=== PATIENT | male | born 1975 | race Caucasian/White ===

== ENCOUNTER → 2016-07-06 | Outpatient (CLI) | payer OTHER ==
--- NOTE | 2016-07-06 16:15 | CR ---
EXAMINATION: Two-view chest (PA and Lateral views). HISTORY: Wheezing. FINDINGS: The trachea is midline. The cardiomediastinal silhouette is within normal limits. No pulmonary infil trates, effusions or pneumothorax. Osseous structures appear unremarkable. IMPRESSION: No acute cardiopulmonary process.
== END ==
LOC: MW.CHFP 15:26
PROVIDERS: ATTEND Physician Assistant
DX: R06.2 Wheezing (principal)
CPT/HCPCS: 36415; 71020; 71020-26; 85025

== ENCOUNTER 2017-02-03 22:50 | Emergency (ER) | payer OTHER ==
[2017-02-03 23:00] VITALS: BP 161/105
[2017-02-03] MEDS ORDERED: Sodium Chloride 0.9% 1,000 ML IV ONE (23:07)
[2017-02-03] MEDS ORDERED: Ondansetron 4 MG/2 ML SDV IVPUSH ONE (23:07)
[2017-02-03] MEDS ORDERED: Ketorolac 30 MG/ML SDV IVPUSH ONE (23:08)
--- NOTE | 2017-02-03 23:09 | EDM.PDOC ---
ED HPI GENERAL MEDICAL PROBLEM - General Chief Complaint: Flank Pain Stated Complaint: BACK PAIN Time Seen by Provider: 02/03/17 23:07 - History of Present Illness INITIAL COMMENTS - FREE TEXT/NARRATIVE: HISTORY AND PHYSICAL: History of present illness: Patient 41-year-old male presents concern of acute left flank pain came on prior to arrival is been no associated vomiting diarrhea no trauma no numbness weakness Incon is retention of bowel or bladder he denies any prior back problems he denies history urolithiasis Review of systems: As per history of present illness and below otherwise all systems reviewed and negative. Past medical history: As per history of present illness and as reviewed below otherwise noncontributory. Surgical history: As per history of present illness and as reviewed below otherwise noncontributory. Social history: No reported history of drug or alcohol abuse. Family history: As per history of present illness and as reviewed below otherwise noncontributory. Physical exam: HEENT: Atraumatic, normocephalic, pupils reactive, negative for conjunctival pallor or scleral icterus, mucous membranes moist, throat clear, neck supple, nontender, trachea midline. Lungs: Clear to auscultation, breath sounds equal bilaterally, chest nontender. Heart: S1S2, regular, negative for clicks, rubs, or JVD. Abdomen: Soft, nondistended, nontender. Negative for masses or hepatosplenomegaly. Left-sided costovertebral tenderness. Pelvis: Stable nontender. Genitourinary: Deferred. Rectal: Deferred. Extremities: Atraumatic, negative for cords or calf pain. Neurovascular unremarkable. Neuro: Awake, alert, oriented. Cranial nerves II through XII unremarkable. Cerebellum unremarkable. Motor and sensory unremarkable throughout. Exam nonfocal. Diagnostics: CBC CMP UA urine culture CT abdomen and pelvis Therapeutics: Normal saline 1 L bolus Toradol 30 iv Zofran 4 mg IV Impression: #1 acute left flank pain Definitive disposition and diagnosis as appropriate pending reevaluation and review of above. Left Flank Pain Pain Score (Numeric/FACES): 8 - Related Data Allergies Allergy/AdvReac Type Severity Reaction Status Date / Time No Known Allergies Allergy Verified 02/03/17 22:56 Home Meds: Home Meds amLODIPine Besylate [Amlodipine Besylate] 1 tab PO DAILY 11/19/13 [History] Metoprolol Succinate [Toprol XL] 50 mg PO DAILY 11/20/13 [History] Losartan [Cozaar] 25 mg PO QPM 02/03/17 [History] Past Medical History Cardiovascular History: Reports: Hypertension - Infectious Disease History Infectious Disease History: Reports: Chicken Pox - Past Surgical History Cardiovascular Surgical History: Reports: None GI Surgical History: Reports: Cholecystectomy Other Musculoskeletal Surgeries/Procedures:: foot surgery Social & Family History - Family History Family Medical History: Noncontributory - Tobacco Use Smoking Status *Q: Never Smoker Second Hand Smoke Exposure: Yes - Caffeine Use Caffeine Use: Reports: Soda - Alcohol Use Days Per Week of Alcohol Use: 0 Number of Drinks Per Day: 0 Total Drinks Per Week: 0 - Recreational Drug Use Recreational Drug Use: No Drug Use in Last 12 Months: No ED ROS GENERAL - Review of Systems Review Of Systems: ROS reveals no pertinent complaints other than HPI. ED EXAM, GENERAL - Physical Exam Exam: See Below (See dictation) Course - Vital Signs Last Recorded V/S: Last Vital Signs Temp 37.4 C 02/03/17 22:57 Pulse 92 02/03/17 22:57 Resp 16 02/03/17 22:57 BP 161/105 H 02/03/17 22:57 Pulse Ox 95 02/03/17 22:57 - Orders/Labs/Meds Orders: Active Orders 24 hr Category Date Time Status Abdomen Pelvis wo Cont [CT] Stat Exams 02/03/17 23:08 Taken CULTURE URINE [RM] Stat Lab 02/03/17 23:09 Received Labs: Laboratory Tests 02/03/17 02/03/17 02/03/17 Range/Units 23:09 23:09 23:09 WBC 8.26 (4.0-11.0) K/uL RBC 5.24 (4.50-5.90) M/uL Hgb 16.5 (13.0-17.0) g/dL Hct 47.0 (38.0-50.0) % MCV 89.7 (80.0-98.0) fL MCH 31.5 (27.0-32.0) pg MCHC 35.1 (31.0-37.0) g/dL RDW Std Deviation 43.6 (28.0-62.0) fl RDW Coeff of Daina 13 (11.0-15.0) % Plt Count 208 (150-400) K/uL MPV 11.00 (7.40-12.00) fL Neut % (Auto) 65.8 (48.0-80.0) % Lymph % (Auto) 26.6 (16.0-40.0) % Harrison % (Auto) 6.4 (0.0-15.0) % Eos % (Auto) 1.1 (0.0-7.0) % Baso % (Auto) 0.1 (0.0-1.5) % Neut # (Auto) 5.4 (1.4-5.7) K/uL Lymph # (Auto) 2.2 (0.6-2.4) K/uL Harrison # (Auto) 0.5 (0.0-0.8) K/uL Eos # (Auto) 0.1 (0.0-0.7) K/uL Baso # (Auto) 0.0 (0.0-0.1) K/uL Nucleated RBC % 0.0 /100WBC Nucleated RBCs # 0 K/uL Sodium 139 (136-146) mmol/L Potassium 4.0 (3.5-5.1) mmol/L Chloride 106 (98-110) mmol/L Carbon Dioxide 25 (21-31) mmol/L BUN 17 (6.0-23.0) mg/dL Creatinine 1.2 (0.6-1.5) mg/dL Est Cr Clr Drug Dosing 74.21 mL/min Estimated GFR (MDRD) > 60.0 ml/min Glucose 118 H (60-110) mg/dL Calcium 9.5 (8.8-10.8) mg/dL Total Bilirubin 0.6 (0.1-1.5) mg/dL AST 27 (5-40) IU/L ALT 44 (8-54) IU/L Alkaline Phosphatase 95 (40-150) Total Protein 7.6 (6.0-8.0) g/dL Albumin 4.5 (3.5-5.0) g/dL Globulin 3.1 (2.0-3.5) g/dL Albumin/Globulin Ratio 1.5 (1.3-2.8) Urine Color YELLOW Urine Appearance CLEAR Urine pH 6.0 (5.0-8.0) Ur Specific [place] 1.010 (1.001-1.035) Urine Protein NEGATIVE (NEGATIVE) mg/dL Urine Glucose (UA) NEGATIVE (NEGATIVE) mg/dL Urine Ketones NEGATIVE (NEGATIVE) mg/dL Urine Occult Blood NEGATIVE (NEGATIVE) Urine Nitrite NEGATIVE (NEGATIVE) Urine Bilirubin NEGATIVE (NEGATIVE) Urine Urobilinogen 0.2 (<2.0) EU/dL Ur Leukocyte Esterase NEGATIVE (NEGATIVE) Urine RBC 0-1 (0-2/HPF) Urine WBC 0-1 (0-5/HPF) Ur Epithelial Cells RARE (NONE-FEW) Urine Bacteria RARE (NEGATIVE) Meds: Medications Discontinued Medications Generic Name Dose Route Start Last Admin Trade Name Freq PRN Reason Stop Dose Admin Sodium Chloride 1,000 mls @ 999 mls/hr 02/03/17 23:07 02/03/17 23:16 Normal Saline IV 02/04/17 00:07 999 mls/hr .Bolus ONE Administration Ketorolac Tromethamine 30 mg 02/03/17 23:08 02/03/17 23:18 Toradol IVPUSH 02/03/17 23:09 30 mg ONETIME ONE Administration Ondansetron HCl 4 mg 02/03/17 23:07 02/03/17 23:16 Zofran IVPUSH 02/03/17 23:08 4 mg ONETIME ONE Administration Departure - Departure Time of Disposition: 00:11 Disposition: Home, Self-Care 01 Condition: Good Clinical Impression: Flank pain - Discharge Information Referrals: PCP,None [Primary Care Provider] - Forms: ED Department Discharge Additional Instructions: The following information is given to patients seen in the emergency department who are being discharged to home. This information is to outline your options for follow-up care. We provide all patients seen in our emergency department with a follow-up referral. The need for follow-up, as well as the timing and circumstances, are variable depending upon the specifics of your emergency department visit. If you don't have a primary care physician on staff, we will provide you with a referral. We always advise you to contact your personal physician following an emergency department visit to inform them of the circumstance of the visit and for follow-up with them and/or the need for any referrals to a consulting specialist. The emergency department will also refer you to a specialist when appropriate. This referral assures that you have the opportunity for followup care with a specialist. All of these measure are taken in an effort to provide you with optimal care, which includes your followup. Under all circumstances we always encourage you to contact your private physician who remains a resource for coordinating your care. When calling for followup care, please make the office aware that this follow-up is from your recent emergency room visit. If for any reason you are refused follow-up, please contact the [facility] emergency department at and asked to speak to the emergency department charge nurse. Follow-up primary medical doctor 1-2 days return as needed as discussed - My Orders Last 24 Hours: My Active Orders 02/03/17 23:08 Abdomen Pelvis wo Cont [CT] Stat 02/03/17 23:09 CULTURE URINE [RM] Stat - Assessment/Plan Last 24 Hours: My Active Orders 02/03/17 23:08 Abdomen Pelvis wo Cont [CT] Stat 02/03/17 23:09 CULTURE URINE [RM] Stat
[2017-02-03 23:39] LABS: CHLORIDE,CL 106 mmol/L (98-110); SODIUM,NA 139 mmol/L (136-146)
--- NOTE | 2017-02-04 14:49 | CT ---
EXAM DATE: 02/03/17 PATIENT'S AGE: 41 Patient: ENE DUMONT Facility: [place], [place] Site . Site : 1975 Study: CT Abdomen/Pelvis [id number]/9/2017 11:56:10 PM Ordering Physician: Cinthya Young Final Report: INDICATION: Left flank pain. TECHNIQUE: CT abdomen and pelvis without contrast. COMPARISON: None. FINDINGS: Lower chest: Unremarkable. Liver: Fatty change. Spleen: Unremarkable. Pancreas: Unremarkable. Gallbladder and bile ducts: Cholecystectomy. Kidneys: There is mild stranding of the proximal left ureter and about the renal pelvis. No discrete obstructing stone demonstrated. There is a 3 mm nonobstructing stone in the lower pole of the left kidney. Punctate nonobstructing right renal stone. Adrenal glands: Unremarkable. GI tract: Unremarkable. Appendix is normal. No free air or free fluid. Small fat containing umbilical hernia. Vascular structures: Unremarkable. Lymph nodes: Unremarkable. Pelvic Organs: Unremarkable. Bones: No acute abnormality IMPRESSION: Mild stranding adjacent to the proximal left ureter and renal pelvis likely represents sequela of recently passed stone or possibly infection. No obstructing stone demonstrated. Nonobstructing renal stones. Fatty change of the liver. Dictated by Ene Bocanegra MD @ 02/04/2017 12:07:29 AM Dictated by: Ene Bocanegra MD @ 02/04/2017 00:07:50 (Electronic Signature) Report Signed by Proxy. [facility] CAMPUSVidhya
== END 2017-02-04 00:23 | disposition home or self-care (01) ==
LOC: MW.ED 22:50
DX: R10.9 Unspecified abdominal pain (principal); I10 Essential (primary) hypertension; Z90.49 Acquired absence of other specified parts of digestive tract; Z79.899 Other long term (current) drug therapy; Z77.22 Contact with and (suspected) exposure to environmental tobacco smoke (acute) (chronic)
CPT/HCPCS: 74176; 80053; 81001; 85025; 87086; 96361; 96374; 96375; 99284; J1885; J2405; J7040; 99283

== ENCOUNTER 2017-03-01 10:18 | Emergency (ER) | payer OTHER ==
[2017-03-01 10:35] VITALS: BP 146/89
--- NOTE | 2017-03-01 11:05 | EDM.PDOC ---
ED HPI GENERAL MEDICAL PROBLEM - General Chief Complaint: Genitourinary Problem Stated Complaint: LOWER BACK PAIN Time Seen by Provider: 03/01/17 10:37 Source of Information: Reports: Patient History Limitations: Reports: No Limitations - History of Present Illness INITIAL COMMENTS - FREE TEXT/NARRATIVE: Presents reporting a sudden onset of stabbing left flank pain while he was driving. The patient states that the pain took his breath away and he had to cloth covered helmet puller. It was not associated with nausea or any other symptoms. He saw a provider in the clinic yesterday for some dysuria. A UA was negative except for small occult blood. BUN 13, creatinine 1.1. He states that 1 to 2 months ago he was diagnosed with renal stones, nonobstructing, by CT scan. A review of the records indicates that on 02/04/[address] scan of the abdomen pelvis indicated "mild stranding adjacent to the proximal left ureter and renal pelvis likely representing sequelae of a recently passed stone or possibly infection. No obstruction". The patient states that the current pain has resolved since admission to the ER. Bilateral Lower Back Pain Score (Numeric/FACES): 5 - Related Data Allergies Allergy/AdvReac Type Severity Reaction Status Date / Time No Known Allergies Allergy Verified 03/01/17 10:31 Home Meds: Home Meds amLODIPine Besylate [Amlodipine Besylate] 1 tab PO DAILY 11/19/13 [History] Metoprolol Succinate [Toprol XL] 50 mg PO DAILY 11/20/13 [History] Losartan [Cozaar] 25 mg PO QPM 02/03/17 [History] Past Medical History HEENT History: Reports: None Cardiovascular History: Reports: Hypertension Respiratory History: Reports: None Gastrointestinal History: Reports: None Genitourinary History: Reports: None Musculoskeletal History: Reports: None Neurological History: Reports: None Psychiatric History: Reports: None Endocrine/Metabolic History: Reports: None Hematologic History: Reports: None Immunologic History: Reports: None Oncologic (Cancer) History: Reports: None Dermatologic History: Reports: None - Infectious Disease History Infectious Disease History: Reports: Chicken Pox - Past Surgical History Head Surgeries/Procedures: Reports: None HEENT Surgical History: Reports: None Cardiovascular Surgical History: Reports: None Respiratory Surgical History: Reports: None GI Surgical History: Reports: Cholecystectomy Male Surgical History: Reports: None Endocrine Surgical History: Reports: None Neurological Surgical History: Reports: None Musculoskeletal Surgical History: Reports: Other (See Below) Other Musculoskeletal Surgeries/Procedures:: foot surgery Oncologic Surgical History: Reports: None Dermatological Surgical History: Reports: None Social & Family History - Family History Family Medical History: Noncontributory - Tobacco Use Smoking Status *Q: Never Smoker Second Hand Smoke Exposure: Yes - Caffeine Use Caffeine Use: Reports: Soda - Alcohol Use Days Per Week of Alcohol Use: 0 Number of Drinks Per Day: 0 Total Drinks Per Week: 0 - Recreational Drug Use Recreational Drug Use: No Drug Use in Last 12 Months: No ED ROS GENERAL - Review of Systems Review Of Systems: ROS reveals no pertinent complaints other than HPI. Constitutional: Reports: No Symptoms. Denies: Fever ED EXAM, RENAL/ - Physical Exam Exam: See Below Exam Limited By: No Limitations General Appearance: Alert, No Apparent Distress Ears: Normal External Exam Nose: Normal Inspection Throat/Mouth: Normal Inspection Head: Atraumatic, Normocephalic Neck: Normal Inspection Respiratory/Chest: No Respiratory Distress, Lungs Clear, Normal Breath Sounds Cardiovascular: Normal Peripheral Pulses GI/Abdominal: Soft Back Exam: Normal Inspection, Full Range of Motion. No: Paraspinal Tenderness, Vertebral Tenderness Extremities: Normal Inspection Neurological: Alert, Oriented, Normal Cognition Psychiatric: Normal Affect, Normal Mood Skin Exam: Warm, Dry, Intact, Normal Color, No Rash Lymphatic: No Adenopathy Course - Vital Signs Last Recorded V/S: Last Vital Signs Temp 36.3 C 03/01/17 10:32 Pulse 83 03/01/17 10:32 Resp 18 03/01/17 10:32 BP 146/89 H 03/01/17 10:32 Pulse Ox 97 03/01/17 10:32 - Orders/Labs/Meds Orders: Active Orders 24 hr Category Date Time Status UA W/MICROSCOPIC [URIN] Stat Lab 03/01/17 10:46 Received Departure - Departure Time of Disposition: 11:22 Disposition: Home, Self-Care 01 Condition: Good Clinical Impression: Renal colic on left side - Discharge Information Referrals: Albert Odonnell MD [Primary Care Provider] - Forms: ED Department Discharge Additional Instructions: 1. Drink plenty of fluids 2. Return promptly for pain or fever, burning with urination. - My Orders Last 24 Hours: My Active Orders 03/01/17 10:46 UA W/MICROSCOPIC [URIN] Stat - Assessment/Plan Last 24 Hours: My Active Orders 03/01/17 10:46 UA W/MICROSCOPIC [URIN] Stat
== END 2017-03-01 11:34 | disposition home or self-care (01) ==
LOC: MW.ED 10:18
DX: N23 Unspecified renal colic (principal); I10 Essential (primary) hypertension; Z79.899 Other long term (current) drug therapy
CPT/HCPCS: 81001; 99283

== ENCOUNTER 2017-06-28 18:30 | Emergency (ER) | payer OTHER ==
[2017-06-28] MEDS ORDERED: Proparacaine 0.5% Ophth Soln 15 ML Bottle EYELF ONE (19:08)
--- NOTE | 2017-06-28 19:13 | EDM.PDOC ---
ED HPI GENERAL MEDICAL PROBLEM - General Chief Complaint: Neuro Symptoms/Deficits Stated Complaint: PT LT SIDE OF FACE NUMB Time Seen by Provider: 06/28/17 18:59 - History of Present Illness INITIAL COMMENTS - FREE TEXT/NARRATIVE: HISTORY AND PHYSICAL: History of present illness: The patient is a 42-year-old male with a history of hypertension who follows in our clinic and states that he has been treating a bilateral eye infection with eyedrops for the last 1 week. The patient says he has had some discomfort in his left eye for the last one week but no discrete headache nausea vomiting or other systemic complaints. He says that today he noticed that he was having numbness to the left side of his face and he felt like he was having difficulty drinking liquids and his family noticed a slight droop of his face on the left as well as inability to close his eyelid completely. The symptoms of the loss of sensation and the weakness only started in the last 24 hours but the visual blurriness and discomfort has been going on for one week. He also said he had a slight pain kind his ear but no earache per se. He has no current head neck or back pains no fevers no chills no sinus issues and no history of recent head trauma. The patient says that he made an appointment to follow-up with the eyelet row marker and has that scheduled already. The patient wears glasses for reading only. The patient states he is compliant with his blood pressure medications but his blood pressure is still very variable which he is aware of. The patient denies any other weakness such as upper or lower extremity weakness and gait instability or any other neurosensory changes. Patient also has not noticed any rashes on his head neck or face. Review of systems: As per history of present illness and below otherwise all systems reviewed and negative. Past medical history: As per history of present illness and as reviewed below otherwise noncontributory. Surgical history: As per history of present illness and as reviewed below otherwise noncontributory. Social history: No reported history of drug or alcohol abuse. Family history: As per history of present illness and as reviewed below otherwise noncontributory. Physical exam: General: Well-developed well-nourished man who is nontoxic and moves easily in the ED. Vital signs noted by me. HEENT: Atraumatic, normocephalic, pupils reactive, negative for conjunctival pallor or scleral icterus, mucous membranes moist, throat clear, neck supple, nontender, trachea midline. EOMs intact please see below for eye exam Lungs: Clear to auscultation, breath sounds equal bilaterally, chest nontender. Heart: S1S2, regular, negative for clicks, rubs, or JVD. Abdomen: Soft, nondistended, nontender. Negative for masses or hepatosplenomegaly. Negative for costovertebral tenderness. Pelvis: Stable nontender. Genitourinary: Deferred. Rectal: Deferred. Extremities: Atraumatic, negative for cords or calf pain. Neurovascular unremarkable. Neuro: Awake, alert, oriented. There is visible delay in the closure of the left eyelid when the patient blinks and there is weakness on stress exam when the patient closes the eyes and I open them. There is a slight facial droop if this smile and there is some weakness in the cheek muscles as well as a loss of 4 head movement with upgoing eyebrows. All of these changes are seen more with direct exam not with gross visual inspection. All other extremities have strength 5/5 including dorsi and plantar flexion in gait was intact into the ED. Cerebellum unremarkable. Motor and sensory unremarkable throughout except for decreased sense of sensation in the left facial areas. Exam nonfocal except for facial as above. Skin: There is no evidence of any rashes or lesions seen on the facial area as well as the scalp head or neck. Diagnostics: Visual acuity fluoroscein stain CT scan of the head Therapeutics: propericaine for exam Visual acuity per nursing: Both eyes 20/20 right eye 20/20 left eye 20/60 Procedure note: After proparacaine was infused in the left eye fluoroscein stain was performed. There is no evidence of any uptake or corneal abrasion seen and patient tolerated the procedure well. The fluoroscein was irrigated out with normal saline 1954: Case was discussed with our fur dressing supervisor Dr. Sal due to the visual acuity. He would like to see this patient on afternoon in his clinic and feels that his visual changes are likely attributed to the dryness of the eyes. He recommends constant lubrication of the eye and taping of the eye at sleep times. All testing results and this conversation were discussed with the patient and at bedside. They're aware of the need to call for an appointment on and reasons to return to the ED. Nursing will teach him how to tape his eye shut for sleep times Impression: Ruiz's palsy left Definitive disposition and diagnosis as appropriate pending reevaluation and review of above. Left Eye Pain Score (Numeric/FACES): 7 - Related Data Allergies Allergy/AdvReac Type Severity Reaction Status Date / Time No Known Allergies Allergy Verified 06/28/17 18:43 Home Meds: Home Meds amLODIPine Besylate [Amlodipine Besylate] 10 mg PO DAILY 11/19/13 [History] Metoprolol Succinate [Toprol XL] 50 mg PO DAILY 11/20/13 [History] Losartan [Cozaar] 25 mg PO QPM 02/03/17 [History] Past Medical History HEENT History: Reports: None Cardiovascular History: Reports: Hypertension Respiratory History: Reports: None Gastrointestinal History: Reports: None Genitourinary History: Reports: None Musculoskeletal History: Reports: None Neurological History: Reports: None Psychiatric History: Reports: None Endocrine/Metabolic History: Reports: None Hematologic History: Reports: None Immunologic History: Reports: None Oncologic (Cancer) History: Reports: None Dermatologic History: Reports: None - Infectious Disease History Infectious Disease History: Reports: Chicken Pox - Past Surgical History Head Surgeries/Procedures: Reports: None HEENT Surgical History: Reports: None Cardiovascular Surgical History: Reports: None Respiratory Surgical History: Reports: None GI Surgical History: Reports: Cholecystectomy Male Surgical History: Reports: None Endocrine Surgical History: Reports: None Neurological Surgical History: Reports: None Musculoskeletal Surgical History: Reports: Other (See Below) Other Musculoskeletal Surgeries/Procedures:: foot surgery Oncologic Surgical History: Reports: None Dermatological Surgical History: Reports: None Social & Family History - Family History Family Medical History: Noncontributory - Tobacco Use Smoking Status *Q: Never Smoker Second Hand Smoke Exposure: Yes - Caffeine Use Caffeine Use: Reports: Soda - Alcohol Use Days Per Week of Alcohol Use: 0 Number of Drinks Per Day: 0 Total Drinks Per Week: 0 - Recreational Drug Use Recreational Drug Use: No Drug Use in Last 12 Months: No ED ROS GENERAL - Review of Systems Review Of Systems: ROS reveals no pertinent complaints other than HPI. ED EXAM, GENERAL - Physical Exam Exam: See Below (See dictation) Course - Vital Signs Last Recorded V/S: Last Vital Signs Temp 36.1 C 06/28/17 18:38 Pulse 73 06/28/17 18:38 Resp 18 06/28/17 18:38 BP 142/100 H 06/28/17 18:38 Pulse Ox 95 06/28/17 18:38 - Orders/Labs/Meds Orders: Active Orders 24 hr Category Date Time Status Communication Order [RC] STAT Care 06/28/17 19:08 Active Communication Order [RC] STAT Care 06/28/17 20:11 Ordered Head wo Cont [CT] Stat Exams 06/28/17 19:08 Taken Meds: Medications Discontinued Medications Generic Name Dose Route Start Last Admin Trade Name Freq PRN Reason Stop Dose Admin Proparacaine HCl 1 ml 06/28/17 19:08 Proparacaine 0.5% Ophth Soln EYELF 06/28/17 19:09 ONETIME ONE Departure - Departure Time of Disposition: 20:12 Disposition: Home, Self-Care 01 Condition: Good Clinical Impression: Ruiz's palsy - Discharge Information Referrals: PCP,None [Primary Care Provider] - Forms: ED Department Discharge Additional Instructions: The following information is given to patients seen in the emergency department who are being discharged to home. This information is to outline your options for follow-up care. We provide all patients seen in our emergency department with a follow-up referral. The need for follow-up, as well as the timing and circumstances, are variable depending upon the specifics of your emergency department visit. If you don't have a primary care physician on staff, we will provide you with a referral. We always advise you to contact your personal physician following an emergency department visit to inform them of the circumstance of the visit and for follow-up with them and/or the need for any referrals to a consulting specialist. The emergency department will also refer you to a specialist when appropriate. This referral assures that you have the opportunity for followup care with a specialist. All of these measure are taken in an effort to provide you with optimal care, which includes your followup. Under all circumstances we always encourage you to contact your private physician who remains a resource for coordinating your care. When calling for followup care, please make the office aware that this follow-up is from your recent emergency room visit. If for any reason you are refused follow-up, please contact the [facility] emergency department at and ask to speak to the emergency department charge nurse. [facility] Primary care- Internal Medicine and Family [facility] [address] [place], [place] [address] [facility] _ Optho [address] [place] [address] Please call [facility] tomorrow to schedule an appointment to see Dr. Sal on afternoon. Please physically tell them that the physician wants to see him on this particular day. Please take ice shot at sleep and neck times. Use [id number] eye lubrication constantly through the day to keep the eye moist. Take all medications as prescribed and return to ER as needed and as discussed. Please call and schedule a follow-up appointment with your provider after you see the fur dressing supervisor for reevaluation and further care - My Orders Last 24 Hours: My Active Orders 06/28/17 19:08 Communication Order [RC] STAT Head wo Cont [CT] Stat 06/28/17 20:11 Communication Order [RC] STAT - Assessment/Plan Last 24 Hours: My Active Orders 06/28/17 19:08 Communication Order [RC] STAT Head wo Cont [CT] Stat 06/28/17 20:11 Communication Order [RC] STAT
[2017-06-29 04:29] VITALS: BP 142/106
--- NOTE | 2017-06-29 10:18 | CT ---
EXAM DATE: 06/28/17 PATIENT'S AGE: 42 Patient: ENE DUMONT Facility: [place], [place] Site . Site : 1975 Study: CT Head WO CONT [id number]/3/2018 7:31:47 PM Ordering Physician: Pat Pulido Final Report: CT HEAD DATE: 06/28/2017 CLINICAL HISTORY: Patient with left-sided facial numbness, blurred vision and inability to close the left eye. TECHNIQUE: Standard CT scanning of the head was performed. COMPARISON: None. FINDINGS: There is no intracranial hemorrhage. The rivera matter-white matter differentiation is intact. The size of the ventricular system is normal for age. There is no mass effect or midline shift. The calvarium is unremarkable. The orbits are unremarkable. The paranasal sinuses are unremarkable. The mastoid air cells are unremarkable. The soft tissues are unremarkable. IMPRESSION: Normal head CT. Dictated by: Gerard Grey MD @ 06/28/2017 19:50:22 (Electronic Signature) Report Signed by Proxy. [facility]
== END 2017-06-28 20:30 | disposition home or self-care (01) ==
LOC: MW.ED 18:30
DX: G51.0 Bell's palsy (principal); I10 Essential (primary) hypertension; Z79.899 Other long term (current) drug therapy
CPT/HCPCS: 70450; 70450-26; 99284; 99284-25

== ENCOUNTER 2018-05-12 09:58 | Day surgery (SDC) | payer OTHER ==
[2018-05-12] MEDS ORDERED: Lactated Ringers 1,000 ML IV SCH ×2 (10:00→14:00)
--- NOTE | 2018-05-12 11:42 | PCM.PREANE ---
Preanesthetic Assessment - Anesthesia/Transfusion/Family Hx Anesthesia History: Prior Anesthesia Without Reaction Other Type of Anesthesia Reaction Comment: Denies any known problems, no known family hx: problems Family History of Anesthesia Reaction: No Transfusion History: No Prior Transfusion(s) - Review of Systems General: No Symptoms Pulmonary: No Symptoms Cardiovascular: No Symptoms Gastrointestinal: No Symptoms Neurological: No Symptoms Other: Reports: None - Physical Assessment NPO Status Date: 05/11/18 Height: 5 ft 8 in Weight: 111.13 kg ASA Class: 2 Mental Status: Alert & Oriented x3 Airway Class: Mallampati = 1 Dentition: Reports: Normal Dentition ROM/Head Extension: Full Lungs: Clear to Auscultation, Normal Respiratory Effort Cardiovascular: Regular Rate, Regular Rhythm - Allergies Allergies/Adverse Reactions: Allergies Allergy/AdvReac Type Severity Reaction Status Date / Time No Known Allergies Allergy Verified 05/09/18 13:58 - Blood Blood Available: No - Anesthesia Plan Pre-Op Medication Ordered: None - Acknowledgements Anesthesia Type Planned: MAC Pt an Appropriate Candidate for the Planned Anesthesia: Yes Alternatives and Risks of Anesthesia Discussed w Pt/Guardian: Yes Pt/Guardian Understands and Agrees with Anesthesia Plan: Yes Additional Comments: PMH: htn PLAN: mac/tiva PreAnesthesia Questionnaire HEENT History: Reports: Allergic Rhinitis Cardiovascular History: Reports: Hypertension Respiratory History: Reports: None Gastrointestinal History: Reports: GERD, Hemorrhoids Genitourinary History: Reports: Renal Calculus Musculoskeletal History: Reports: Back Pain, Chronic Neurological History: Reports: Seizure, Other (See Below) Other Neuro History: hx of Floris Palsy, hx of seixure as a child- unknown cause Psychiatric History: Reports: Anxiety Endocrine/Metabolic History: Reports: Obesity/BMI 30+ Hematologic History: Reports: None Immunologic History: Reports: None Oncologic (Cancer) History: Reports: None Dermatologic History: Reports: None - Infectious Disease History Infectious Disease History: Reports: Chicken Pox - Past Surgical History HEENT Surgical History: Reports: None GI Surgical History: Reports: Cholecystectomy, Colonoscopy, EGD Musculoskeletal Surgical History: Reports: Other (See Below) Other Musculoskeletal Surgeries/Procedures:: tendon repair right foot - SUBSTANCE USE Smoking Status *Q: Never Smoker Recreational Drug Use History: No - HOME MEDS Home Medications: Home Meds amLODIPine Besylate [Amlodipine Besylate] 10 mg PO QAM 11/19/13 [History] Metoprolol Succinate [Toprol XL] 50 mg PO QAM 11/20/13 [History] Losartan [Cozaar] 25 mg PO QPM 02/03/17 [History] Cholecalciferol (Vitamin D3) [Vitamin D3] 1,000 units PO DAILY 05/09/18 [History ] Gluc HCl/Csa/Erin Hy/Hyalur Ac [Glucosamine Chondroitin] 1 tab PO DAILY [History] Magnesium Citrate 100 mg PO DAILY 05/09/18 [History] Vitamin B Complex 1 tab PO DAILY 05/09/18 [History] - CURRENT (IN HOUSE) MEDS Current Meds: Current Medications Lactated Ringer's (Ringers, Lactated) 1,000 mls @ 125 mls/hr IV ASDIRECTED AURELIO
[2018-05-12] MEDS ORDERED: Propofol 200 MG/20 ML SDV ONE (12:45)
[2018-05-12] MEDS ORDERED: fentaNYL 100 MCG/2 ML SDV ONE (12:45)
[2018-05-12] MEDS ORDERED: Midazolam 1 MG/ML 2 ML SDV ONE (12:48)
--- NOTE | 2018-05-12 13:52 | PCM.OPNOTE ---
- General Post-Op/Procedure Note Date of Surgery/Procedure: 05/12/18 Operative Procedure(s): Esophagogastroduodenoscopy with gastric biopsies. Colonoscopy with cold proximal and distal rectal polypectomies. Pre Op Diagnosis: Progressive heartburn. Change in bowel habits. Family history of colon cancer. Post-Op Diagnosis: Moderate gastritis with vital hernia and esophagitis. Rectal polyps. Anesthesia Technique: MAC (ASA II) Primary Surgeon: Bonilla Price Condition: Good Free Text/Narrative:: DICTATION [id number] CPT CODE [id number]
--- NOTE | 2018-05-12 13:56 | PCM.POSTAN ---
POST ANESTHESIA ASSESSMENT - MENTAL STATUS Mental Status: Alert, Oriented - RESPIRATORY Respiratory Status: Respiratory Rate WNL, Airway Patent, O2 Saturation Stable - CARDIOVASCULAR CV Status: Pulse Rate WNL, Blood Pressure Stable - GASTROINTESTINAL GI Status: No Symptoms - POST OP HYDRATION Hydration Status: Adequate & Stable - OBSERVATIONS Free Text/Narrative:: The patient tolerated the procedure well. there were no apparent anesthetic complications at this time. Discharge home per criteria.
--- NOTE | 2018-05-12 14:07 | OR ---
SURGEON: Bonilla Price M.D. DATE OF PROCEDURE: 05/12/2018 OPERATION PERFORMED: Colonoscopy with cold proximal and distal rectal polypectomies. ANESTHESIA: MAC. ASA CLASSIFICATION: II. PREOPERATIVE DIAGNOSES: 1. Change in bowel habits. 2. Family history of colon cancer. POSTOPERATIVE DIAGNOSIS: Rectal polyps. DESCRIPTION OF PROCEDURE: With the patient having completed esophagogastroduodenoscopy with biopsy, he was maintained in the left lateral decubitus position. The colonoscope was inserted into the rectum and advanced without difficulty to the cecum where the colonoscope was retroflexed to visualize the ascending colon from below. The colonoscope was then straightened and slowly withdrawn. The cecum, ascending colon, hepatic flexure, transverse colon, splenic flexure, descending colon, and sigmoid colon showed no tumors, polyps, diverticula, or angiodysplastic changes. There were a few small polyps encountered in the rectum. One was proximal and sent as a separate specimen. There were two smaller polyps distally that were sent as one specimen, given their close proximity. The colonoscope was then retroflexed to visualize the anal orifice from above. No tumors or polyps were seen, and there were no other acute hemorrhoidal changes. The colonoscope was then straightened, the rectum aspirated, and the colonoscope removed. The patient tolerated the procedure well and was taken to recovery room in stable condition. HAJA ORTIZ /[id number]
--- NOTE | 2018-05-12 14:09 | OR ---
SURGEON: Bonilla Price M.D. DATE OF PROCEDURE: 05/12/2018 OPERATION PERFORMED: Esophagogastroduodenoscopy with biopsy. ANESTHESIA: MAC. ASA CLASSIFICATION: II. PREOPERATIVE DIAGNOSIS: Progressive heartburn. POSTOPERATIVE DIAGNOSES: 1. Gastritis. 2. Esophagitis with superficial esophageal erosions. DESCRIPTION OF PROCEDURE: The patient was taken to the endoscopy room and positioned on the endoscopy table in the left lateral decubitus position. Time-out was called for appropriate identification of the patient and procedure. A bite block was placed between the patient's teeth. The gastroscope was inserted through the bite block into the oropharynx and advanced without difficulty through the esophagus and stomach into the duodenum where examination was carried out in a retrograde fashion. The duodenum shows no acute inflammatory changes or ulcerations. Stomach does show [id number] gastritis. No acute erosions or ulcers were identified. The gastroscope was retroflexed to visualize the proximal stomach. The patient does have a small hiatal hernia which was better viewed from above. As the scope was withdrawn, the greater and lesser curvatures were carefully visualized. No tumors or polyps were seen. The GE junction was well defined and again shows a small hiatal hernia. He did have some superficial esophageal erosions, but no deep ulceration. No tumors were noted. The esophagus itself demonstrates good contractility. No mid or proximal lesions were identified. The vocal cords were briefly visualized as the scope was withdrawn and noted to move symmetrically. The gastroscope was then removed with the patient having tolerated this portion of the procedure well. Following colonoscopy, he was taken to recovery room in stable condition. HAJA / DIANA /[id number]
--- NOTE | 2018-05-12 14:45 | PCM48HPAN ---
Post Anesthesia Note - EVALUATION WITHIN 48HRS OF ANESTHETIC Vital Signs in Normal Range: Yes Patient Participated in Evaluation: Yes Respiratory Function Stable: Yes Airway Patent: Yes Cardiovascular Function Stable: Yes Hydration Status Stable: Yes Pain Control Satisfactory: Yes Nausea and Vomiting Control Satisfactory: Yes Mental Status Recovered: Yes Resp Rate: 12
[2018-05-12 17:41] VITALS: BP 126/88
== END 2018-05-12 15:00 | disposition home or self-care (01) ==
LOC: MW.SDS 09:58
PROVIDERS: ATTEND Surgery
DX: K62.1 Rectal polyp (principal); K29.50 Unspecified chronic gastritis without bleeding; K22.10 Ulcer of esophagus without bleeding; K44.9 Diaphragmatic hernia without obstruction or gangrene; I10 Essential (primary) hypertension; E78.5 Hyperlipidemia, unspecified; N20.0 Calculus of kidney; E66.9 Obesity, unspecified; Z68.37 Body mass index [BMI] 37.0-37.9, adult; Z80.0 Family history of malignant neoplasm of digestive organs; Z79.899 Other long term (current) drug therapy
CPT/HCPCS: 43239; 45380; J2250; J2704; J3010; J7120; J2001

== ENCOUNTER 2020-04-08 15:06 | Emergency (ER) | payer BC, OTHER ==
[2020-04-08 15:23] VITALS: BP 151/89
[2020-04-08] MEDS: Tetracaine HCl/PF 0.5% 4 ML Bottle OP ONE (15:27)
--- NOTE | 2020-04-08 15:54 | EDM.PDOC ---
ED HPI GENERAL MEDICAL PROBLEM - General Chief Complaint: Eye Problems Stated Complaint: LT EYE PROBLEM Time Seen by Provider: 04/08/20 15:23 Source of Information: Reports: Patient History Limitations: Reports: No Limitations - History of Present Illness INITIAL COMMENTS - FREE TEXT/NARRATIVE: Is a 44-year-old male who presents today for possible foreign body to the left eye. Patient went to the primary care clinic and was sent here for evaluation. Patient states he feels like something is in his eyes very itchy. Patient has no vision changes no drainage from the eye. Patient did say he was cutting sheet metal when this happened. Patient denies any other injuries. Left Eye Pain Score (Numeric/FACES): 3 - Related Data Allergies Allergy/AdvReac Type Severity Reaction Status Date / Time No Known Allergies Allergy Verified 05/09/18 13:58 Home Meds: Home Meds amLODIPine Besylate [Amlodipine Besylate] 10 mg PO QAM 11/19/13 [History] Metoprolol Succinate [Toprol XL] 50 mg PO QAM 11/20/13 [History] Losartan [Cozaar] 25 mg PO QPM 02/03/17 [History] Erythromycin Base [Erythromycin 0.5% Ophth Oint] 1 applic OP Q6HR 5 Days #1 tube 04/08/20 [Rx] Past Medical History HEENT History: Reports: Allergic Rhinitis Cardiovascular History: Reports: Hypertension Respiratory History: Reports: None Gastrointestinal History: Reports: GERD, Hemorrhoids Genitourinary History: Reports: Renal Calculus Musculoskeletal History: Reports: Back Pain, Chronic Neurological History: Reports: Seizure, Other (See Below) Other Neuro History: hx of [place] Palsy, hx of seixure as a child- unknown cause Psychiatric History: Reports: Anxiety Endocrine/Metabolic History: Reports: Obesity/BMI 30+ Hematologic History: Reports: None Immunologic History: Reports: None Oncologic (Cancer) History: Reports: None Dermatologic History: Reports: None - Infectious Disease History Infectious Disease History: Reports: Chicken Pox - Past Surgical History Head Surgeries/Procedures: Reports: None HEENT Surgical History: Reports: None Cardiovascular Surgical History: Reports: None Respiratory Surgical History: Reports: None GI Surgical History: Reports: Cholecystectomy, Colonoscopy, EGD Male Surgical History: Reports: None Endocrine Surgical History: Reports: None Neurological Surgical History: Reports: None Musculoskeletal Surgical History: Reports: Other (See Below) Other Musculoskeletal Surgeries/Procedures:: tendon repair right foot Oncologic Surgical History: Reports: None Dermatological Surgical History: Reports: None Social & Family History - Family History Family Medical History: No Pertinent Family History - Tobacco Use Tobacco Use Status *Q: Never Tobacco User - Caffeine Use Caffeine Use: Reports: Soda - Recreational Drug Use Recreational Drug Use: No ED ROS GENERAL - Review of Systems Review Of Systems: See Below Constitutional: Reports: No Symptoms HEENT: Reports: Eye Pain Respiratory: Reports: No Symptoms Cardiovascular: Reports: No Symptoms Endocrine: Reports: No Symptoms GI/Abdominal: Reports: No Symptoms : Reports: No Symptoms Musculoskeletal: Reports: No Symptoms Skin: Reports: No Symptoms Neurological: Reports: No Symptoms Psychiatric: Reports: No Symptoms Hematologic/Lymphatic: Reports: No Symptoms Immunologic: Reports: No Symptoms ED EXAM GENERAL W FULL EYE - Physical Exam Exam: See Below Exam Limited By: No Limitations General Appearance: Alert, WD/WN Eye Exam: Left Eye: Corneal Abrasion, Bilateral Eye: EOMI, PERRL Eyelids: Bilateral: Normal Appearance Conjunctiva & Sclera: Right: Normal Appearance Cornea Exam: Left: Corneal Abrasion Extraocular Movements: Bilateral: Intact Pupils: Normal Accommodation Neurological: Alert, Oriented Course - Vital Signs Last Recorded V/S: Last Vital Signs Temp 96.9 F 04/08/20 15:20 Pulse 76 04/08/20 15:20 Resp 17 04/08/20 15:20 BP 151/89 H 04/08/20 15:20 Pulse Ox 98 04/08/20 15:20 - Orders/Labs/Meds Meds: Medications Discontinued Medications Generic Name Dose Route Start Last Admin Trade Name Leah PRN Reason Stop Dose Admin Tetracaine HCl 1 ml 04/08/20 15:23 04/08/20 15:27 Tetracaine 0.5% Steri-Unit Dinora OP 04/08/20 15:24 1 ml ASDIRECTED ONE Administration Departure - Departure Time of Disposition: 15:49 Disposition: Home, Self-Care 01 Condition: Good Clinical Impression: Corneal abrasion - Discharge Information *PRESCRIPTION DRUG MONITORING PROGRAM REVIEWED*: Not Applicable *COPY OF PRESCRIPTION DRUG MONITORING REPORT IN PATIENT MILY: Not Applicable Instructions: Corneal Abrasion, Eye Foreign Body, [id number] Referrals: Albert Odonnell MD [Primary Care Provider] - Additional Instructions: The following information is given to patients seen in the emergency department who are being discharged to home. This information is to outline your options for follow-up care. We provide all patients seen in our emergency department with a follow-up referral. The need for follow-up, as well as the timing and circumstances, are variable depending upon the specifics of your emergency department visit. If you don't have a primary care physician on staff, we will provide you with a referral. We always advise you to contact your personal physician following an emergency department visit to inform them of the circumstance of the visit and for follow-up with them and/or the need for any referrals to a consulting specialist. The emergency department will also refer you to a specialist when appropriate. This referral assures that you have the opportunity for follow-up care with a specialist. All of these measure are taken in an effort to provide you with optimal care, which includes your follow-up. Under all circumstances we always encourage you to contact your private physician who remains a resource for coordinating your care. When calling for follow-up care, please make the office aware that this follow-up is from your recent emergency room visit. If for any reason you are refused follow-up, please contact the [facility] Emergency Department at and asked to speak to the emergency department charge nurse. Please follow up with your primary care physician. If you do not have a primary care physician, see below: Ophthalmology Clinic /Eye clinic [phone] Please call the number above and schedule follow-up appointment to be seen this week by the eye clinic. Sepsis Event Note (ED) - Evaluation Sepsis Screening Result: No Definite Risk - Focused Exam Vital Signs: Vital Signs Temp Pulse Resp BP Pulse Ox 04/08/20 15:20 96.9 F 76 17 151/89 H 98 - Assessment/Plan Assessment:: Is a 44-year-old male who presented today for possible foreign body. On exam there is no foreign body seen. We did a Brian lamp that show a small corneal abrasion to the medial side of the left eye on the conjunctive a. Patient does not wear contacts we will send patient home with erythromycin have patient see ophthalmology this week.
[2020-04-08 16:02] VITALS: PULSE 77
== END 2020-04-08 16:02 | disposition home or self-care (01) ==
LOC: MW.ED 15:06
DX: S05.02XA Injury of conjunctiva and corneal abrasion without foreign body, left eye, initial encounter (principal); I10 Essential (primary) hypertension; E66.9 Obesity, unspecified; Z68.41 Body mass index [BMI] 40.0-44.9, adult; Z79.899 Other long term (current) drug therapy; X58.XXXA Exposure to other specified factors, initial encounter
CPT/HCPCS: 99282; 99283

== ENCOUNTER 2020-10-01 06:49 | Day surgery (SDC) | payer BC, OTHER ==
[~2020-10-01 06:49] MED LIST: Albuterol 0.083% 2.5 MG/3 ML Neb Soln NEB PRN; HYDROmorphone 1 MG/ML Syringe IVPUSH PRN; Lactated Ringers 1,000 ML IV SCH; Lidocaine 2% 5 ML SDV ONE; Metoclopramide 10 MG/2 ML SDV IVPUSH PRN; Metoclopramide 10 MG/2 ML SDV ONE; Morphine 2 MG/ML SYRINGE IVPUSH PRN; Naloxone 0.4 MG/ML Syringe IVPUSH PRN; Ondansetron 4 MG/2 ML SDV IVPUSH PRN; Ondansetron 4 MG/2 ML SDV ONE; fentaNYL 100 MCG/2 ML SDV IVPUSH PRN; fentaNYL 100 MCG/2 ML SDV ONE; propofoL 100 ML ONE
--- NOTE | 2020-10-01 07:15 | PCM.PREANE ---
Preanesthetic Assessment - Anesthesia/Transfusion/Family Hx Anesthesia History: Prior Anesthesia Without Reaction Other Type of Anesthesia Reaction Comment: Denies any known problems, no known family hx: problems Family History of Anesthesia Reaction: No Transfusion History: No Prior Transfusion(s) - Review of Systems General: No Symptoms Pulmonary: No Symptoms Cardiovascular: No Symptoms Gastrointestinal: No Symptoms Neurological: No Symptoms Other: Reports: None - Physical Assessment NPO Status Date: 10/01/20 NPO Status Time: 00:00 Height: 1.73 m Weight: 108.862 kg ASA Class: 3 Mental Status: Alert & Oriented x3 Airway Class: Mallampati = 1 Dentition: Reports: Normal Dentition Thyro-Mental Finger Breadths: 4 Mouth Opening Finger Breadths: 3 ROM/Head Extension: Full Lungs: Clear to Auscultation, Normal Respiratory Effort Cardiovascular: Regular Rate, Regular Rhythm - Allergies Allergies/Adverse Reactions: Allergies Allergy/AdvReac Type Severity Reaction Status Date / Time No Known Allergies Allergy Verified 09/25/20 11:43 - Acknowledgements Anesthesia Type Planned: General Anesthesia Pt an Appropriate Candidate for the Planned Anesthesia: Yes Alternatives and Risks of Anesthesia Discussed w Pt/Guardian: Yes Pt/Guardian Understands and Agrees with Anesthesia Plan: Yes PreAnesthesia Questionnaire HEENT History: Reports: Allergic Rhinitis Cardiovascular History: Reports: Hypertension Respiratory History: Reports: None Gastrointestinal History: Reports: GERD, Hemorrhoids Genitourinary History: Reports: Renal Calculus Musculoskeletal History: Reports: None Neurological History: Reports: Other (See Below) Other Neuro History: hx of [place] Palsy, Psychiatric History: Reports: None Endocrine/Metabolic History: Reports: Obesity/BMI 30+ Hematologic History: Reports: None Immunologic History: Reports: None Oncologic (Cancer) History: Reports: None Dermatologic History: Reports: None - Infectious Disease History Infectious Disease History: Reports: Chicken Pox - Past Surgical History Head Surgeries/Procedures: Reports: None HEENT Surgical History: Reports: None Cardiovascular Surgical History: Reports: None Respiratory Surgical History: Reports: None GI Surgical History: Reports: Cholecystectomy, Colonoscopy, EGD Male Surgical History: Reports: None Endocrine Surgical History: Reports: None Neurological Surgical History: Reports: None Musculoskeletal Surgical History: Reports: Other (See Below) Other Musculoskeletal Surgeries/Procedures:: tendon repair right foot Oncologic Surgical History: Reports: None Dermatological Surgical History: Reports: None - SUBSTANCE USE Tobacco Use Status *Q: Never Tobacco User - HOME MEDS Home Medications: Home Meds amLODIPine Besylate [Amlodipine Besylate] 10 mg PO QAM 11/19/13 [History] Metoprolol Succinate [Toprol XL] 50 mg PO QAM 11/20/13 [History] Losartan [Cozaar] 50 mg PO QPM 02/03/17 [History] Calcium Carbonate [Tums] 1 tab.chew CHEW ASDIRECTED PRN 09/25/20 [History] Multivitamin 1 tab PO DAILY 09/25/20 [History] Vitamin B Complex 1 tab PO DAILY 09/25/20 [History] - CURRENT (IN HOUSE) MEDS Current Meds: Current Medications Albuterol (Albuterol 0.083% 2.5 Mg/3 Ml Neb Soln) 2.5 mg NEB ONETIME PRN PRN Reason: Wheezing Droperidol (Droperidol 5 Mg/2 Ml Sdv) 0.625 mg IVPUSH ONETIME PRN PRN Reason: Nausea/Vomiting Fentanyl (Fentanyl 100 Mcg/2 Ml Sdv) 50 mcg IVPUSH Q5M PRN PRN Reason: Pain (mild 1-3) Hydromorphone HCl (Hydromorphone 1 Mg/Ml Syringe) 1 mg IVPUSH Q10M PRN PRN Reason: Pain (moderate 4-6) Lactated Ringer's (Ringers, Lactated) 1,000 mls @ 100 mls/hr IV ASDIRECTED AURELIO Cefazolin Sodium/Dextrose 2 gm (/ Premix) 50 mls @ 100 mls/hr IV ONCALL AURELIO Metoclopramide HCl (Metoclopramide 10 Mg/2 Ml Sdv) 10 mg IVPUSH ONETIME PRN PRN Reason: Nausea/Vomiting Morphine Sulfate (Morphine 2 Mg/Ml Syringe) 2 mg IVPUSH Q10M PRN PRN Reason: Pain (severe 7-10) Naloxone HCl (Naloxone 0.4 Mg/Ml Syringe) 0.1 mg IVPUSH ASDIRECTED PRN PRN Reason: Respiratory Depression Ondansetron HCl (Ondansetron 4 Mg/2 Ml Sdv) 4 mg IVPUSH ONETIME PRN PRN Reason: Nausea/Vomiting Discontinued Medications Fentanyl (Fentanyl 100 Mcg/2 Ml Sdv) Confirm Administered Dose 100 mcg .ROUTE .STK-MED ONE Stop: 10/01/20 06:44 Propofol (Diprivan 100 Ml) Confirm Administered Dose 100 mls @ as directed .ROUTE .ST-MED ONE Stop: 10/01/20 06:44 Lidocaine (Lidocaine 2% 5 Ml Sdv) Confirm Administered Dose 5 ml .ROUTE .ST-MED ONE Stop: 10/01/20 06:44 Metoclopramide HCl (Metoclopramide 10 Mg/2 Ml Sdv) Confirm Administered Dose 10 mg .ROUTE .ST-MED ONE Stop: 10/01/20 06:44 Ondansetron HCl (Ondansetron 4 Mg/2 Ml Sdv) Confirm Administered Dose 4 mg .ROUTE .STDole Tian-MED ONE Stop: 10/01/20 06:44
[2020-10-01] MEDS ORDERED: Lidocaine 1% 20 ML MDV ONE (07:21)
[2020-10-01] MEDS ORDERED: Bupivacaine 25%/EPINEPHrine/PF 30 ML ONE (07:22)
[2020-10-01] MEDS ORDERED: ceFAZolin 2 GM in Premix Bag 1 BAG IV SCH (08:00)
[2020-10-01] MEDS ORDERED: Glycopyrrolate 0.2 MG/ML SDV ONE (08:02)
[2020-10-01] MEDS ORDERED: Phenylephrine 1% 10 MG/ML SDV ONE (08:39)
[2020-10-01] MEDS ORDERED: Ketorolac 30 MG/ML SDV ONE (08:41)
[2020-10-01] MEDS ORDERED: Dexamethasone 4 MG/ML 5 ML MDV ONE (08:42)
[2020-10-01] MEDS ORDERED: Ondansetron 4 MG/2 ML SDV ONE (08:47)
[2020-10-01] MEDS ORDERED: ceFAZolin 1 GM Vial ONE ×2 (08:52)
--- NOTE | 2020-10-01 09:38 | PCM48HPAN ---
Post Anesthesia Note - EVALUATION WITHIN 48HRS OF ANESTHETIC Vital Signs in Normal Range: Yes Patient Participated in Evaluation: Yes Respiratory Function Stable: Yes Airway Patent: Yes Cardiovascular Function Stable: Yes Hydration Status Stable: Yes Pain Control Satisfactory: Yes Nausea and Vomiting Control Satisfactory: Yes Mental Status Recovered: Yes Vital Signs: Last Vital Signs Temp 97.3 F 10/01/20 07:25 Pulse 66 10/01/20 07:25 Resp 16 10/01/20 07:25 BP 160/93 H 10/01/20 07:25 Pulse Ox 95 10/01/20 07:25
--- NOTE | 2020-10-01 09:38 | PCM.POSTAN ---
POST ANESTHESIA ASSESSMENT - MENTAL STATUS Mental Status: Alert, Oriented - VITAL SIGNS Vital Signs: Last Vital Signs Temp 97.3 F 10/01/20 07:25 Pulse 66 10/01/20 07:25 Resp 16 10/01/20 07:25 BP 160/93 H 10/01/20 07:25 Pulse Ox 95 10/01/20 07:25 - RESPIRATORY Respiratory Status: Respiratory Rate WNL, Airway Patent, O2 Saturation Stable - CARDIOVASCULAR CV Status: Pulse Rate WNL, Blood Pressure Stable - GASTROINTESTINAL GI Status: No Symptoms - POST OP HYDRATION Hydration Status: Adequate & Stable
--- NOTE | 2020-10-01 09:39 | PCM.OPNOTE ---
- General Post-Op/Procedure Note Date of Surgery/Procedure: 10/01/20 Operative Procedure(s): Right knee arthroscopy and partial medial meniscectomy and medial femoral condyle chondroplasty Findings: Right knee arthroscopic findings: Lateral compartment-femoral and tibial cartilage is intact and lateral meniscus has no tears Notch-anterior cruciate ligament is intact Medial compartment-femoral condyle shows diffuse grade 2 changes in the anterior aspect of the femoral condyle, tibial cartilage shows minimal grade 1 changes, complex tear of the posterior third of the medial meniscus Patellofemoral joint-patellar cartilage is intact with small focal grade 1 changes of the trochlear groove cartilage No loose bodies noted Pre Op Diagnosis: Right knee medial meniscus tear Post-Op Diagnosis: 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 MRI confirms that he has a right knee medial meniscus tear. We discussed the risks and benefits of arthroscopic surgery and the difficulty knowing how much of his medial knee pain may be caused by the meniscus tear or arthritis. He had minimal degenerative changes on x-ray. He elected to proceed with surgery and consented. He was medically cleared for surgery. Patient was taken to the operating room. After adequate general anesthesia he remained in a supine position. The right lower extremities prepped draped in usual sterile manner after application of a tourniquet. The tourniquet was inflated. Arthroscopy was performed with a superior medial drain portal, medial parapatellar arthroscopy portal, and medial accessory working portal. The above diagnostic arthroscopy findings are noted. Partial medial meniscectomy was performed with punches and a shaver back to a stable rim which was confirmed with probing. A medial femoral condyle chondroplasty was performed with a shaver and noted to have diffuse Outerbridge grade 2 changes in the anterior medial femoral condyle with no exposed bone. Instruments were removed from the joint, fluid expressed from the joint, Marcaine with epinephrine injected into the portals but not the joint, and portals were closed with interrupted nylon suture. Sterile dressing was applied and the patient was accompanied to the recovery room in stable condition. Pain medications: Ibuprofen and Vicodin Venous thromboembolism prophylaxis: Not indicated for arthroscopic surgery Prophylactic antibiotics: Not indicated for outpatient surgery Restrictions: Patient is weightbearing as tolerated on his right lower extremity with crutches or an assistive device as needed. He has full range of motion and no specific restrictions. Patient should leave the dressing in place for 3 days and may shower after changing the dressing but should not bathe or soak the incisions until after he is in seen at his 2-week follow-up appointment and sutures are removed.
[2020-10-01] MEDS ORDERED: Acetaminophen/HYDROcodone 325-5 MG Tab ONE (10:50)
[2020-10-01 12:28] VITALS: BP 139/86; PULSE 61
== END 2020-10-01 11:45 | disposition home or self-care (01) ==
LOC: MW.SDS 06:49
PROVIDERS: ATTEND Orthopaedic Surgery
DX: S83.231A Complex tear of medial meniscus, current injury, right knee, initial encounter (principal); E78.5 Hyperlipidemia, unspecified; I10 Essential (primary) hypertension; E66.9 Obesity, unspecified; Z79.899 Other long term (current) drug therapy; Z98.890 Other specified postprocedural states; Z68.37 Body mass index [BMI] 37.0-37.9, adult
CPT/HCPCS: 29881; A9270; J0131; J0690; J1100; J1885; J2405; J2704; J2765; J3010; J3490; J7120; 01400; J2370

== ENCOUNTER 2024-05-11 08:23 | Day surgery (SDC) | payer BC ==
[2024-05-11] MEDS ORDERED: propofoL 500 MG/50 ML 50 ML ONE (08:43)
[2024-05-11] MEDS ORDERED: Lidocaine 2% 5 ML SDV ONE (08:43)
[2024-05-11] MEDS: Lactated Ringers 1,000 ML IV SCH (09:02)
[2024-05-11] MEDS ORDERED: Propofol 200 MG/20 ML SDV ONE (09:24)
[2024-05-11] MEDS ORDERED: Lactated Ringers 1,000 ML IV SCH (10:15)
[2024-05-11 10:48] VITALS: BP 130/76; PULSE 66
== END 2024-05-11 11:00 | disposition home or self-care (01) ==
LOC: MW.SDS 08:23
PROVIDERS: ATTEND Surgery
DX: K21.00 Gastro-esophageal reflux disease with esophagitis, without bleeding (principal); K44.9 Diaphragmatic hernia without obstruction or gangrene; I10 Essential (primary) hypertension; E66.812 Obesity, class 2; E11.9 Type 2 diabetes mellitus without complications; Z79.899 Other long term (current) drug therapy; Z86.0100 Personal history of colon polyps, unspecified
CPT/HCPCS: 43239; 45378; J2704; J7120; 00813; J2003